=== PATIENT | female | born 1970 | race Caucasian/White ===

== ENCOUNTER 2017-09-24 11:00 | Inpatient (IN) | payer SELFPAY ==
[~2017-09-24] VITALS: Ht 165.1 cm; Wt 94.8 kg
[2017-09-24] MEDS ORDERED: MORPHINE SULFATE 4 MG/ML CPJ (NOT FOR IM USE) IV STA (11:15)
[2017-09-24] MEDS ORDERED: SODIUM CHLORIDE 0.9% 1,000 ML IV ONE (11:15)
[2017-09-24] MEDS ORDERED: ONDANSETRON HCL 4MG/2ML VIAL IV STA (11:15)
[2017-09-24] MEDS ORDERED: FAMOTIDINE 20MG/2ML VIAL IV STA (11:15)
[2017-09-24 11:56] LABS: HEMATOCRIT. 36.3 % (36.0-48.0); HEMOGLOBIN. 12.1 g/dL (12.0-16.0); MEAN CORPUSCULAR HEMOGLOBIN 29.1 pg (28.0-32.0); MEAN CORPUSCULAR VOLUME 87.4 fL (81.0-99.0); MEAN PLATELET VOLUME 8.6 fl (7.4-10.4); PLATELET 262 x1000/uL (130-400); RED BLOOD CELL COUNT 4.15 mill/uL (4.2-5.4); RED CELL DISTRIBUTION WIDTH 14.6 % (11.6-14.6)
[2017-09-24 12:03] LABS: PARTIAL THROMBOPLASTIN TIME 26.4 sec (23.4-31.0); PROTHROMBIN TIME 10.3 sec (9.4-11.6)
[2017-09-24 12:04] LABS: CHLORIDE 103 mEq/L (98-107)
[2017-09-24 12:22] LABS: PLATELET ESTIMATE NORMAL
[2017-09-24 12:32] LABS: HCG SCREEN NEGATIVE
[2017-09-24 14:12] LABS: CLARITY URINE CLEAR (CLEAR); COLOR URINE YELLOW (YELLOW); KETONES URINE 3+ (NEGATIVE); LEUKOCYTE ESTERASE URINE NEGATIVE (NEGATIVE); NITRITE URINE NEGATIVE (NEGATIVE); OCCULT BLOOD URINE 2+ (NEGATIVE); PH URINE 6.5 (4.5-8.0); PROTEIN URINE NEGATIVE (NEGATIVE); SPECIFIC GRAVITY URINE 1.023 (1.005-1.030)
[2017-09-24] MEDS ORDERED: METRONIDAZOLE 500 MG PREMIX 100 ML IV ONE (14:30)
[2017-09-24] MEDS ORDERED: LEVOFLOXACIN 500MG PREMIX 100 ML IV ONE (14:30)
[2017-09-24 14:52] LABS: *BARBITURATES SCREEN URINE NEGATIVE (NEGATIVE); *COCAINE SCREEN URINE NEGATIVE (NEGATIVE); CANNABINOID URINE SCREEN NEGATIVE (NEGATIVE); PHENCYCLIDINE URINE SCREEN NEGATIVE (NEGATIVE)
[2017-09-24 14:53] LABS: *BENZODIAZEPINES SCREEN URINE NEGATIVE (NEGATIVE); METHADONE URINE SCREEN NEGATIVE (NEGATIVE)
[2017-09-24 15:00] LABS: *AMPHETAMINES SCREEN URINE PRESUMTIVE POSITIVE (NEGATIVE); OPIATES URINE SCREEN PRESUMTIVE POSITIVE (NEGATIVE)
[2017-09-24] MEDS ORDERED: MORPHINE SULFATE 4 MG/ML CPJ (NOT FOR IM USE) IV ONE (15:00)
[2017-09-24] MEDS ORDERED: ONDANSETRON 4MG ODT PO ONE (15:00)
[2017-09-24 19:12] VITALS: BP 131/72
[2017-09-24 19:48] VITALS: BP 131/72
[2017-09-24 20:00] VITALS: BP 114/61
[2017-09-24] MEDS ORDERED: HYDR12.529 PO (20:23)
[2017-09-24] MEDS ORDERED: METF500T4 PO (20:23)
[2017-09-24] MEDS ORDERED: ACETAMINOPHEN 325MG TABLET PO PRN (20:30)
[2017-09-24] MEDS ORDERED: DOCUSATE SODIUM 100MG CAPSULE PO PRN (20:30)
[2017-09-24] MEDS ORDERED: DIPHENHYDRAMINE 50MG/ML VIAL IV PRN (20:30)
[2017-09-24] MEDS ORDERED: MAGNESIUM/ALUMINUM HYDROXIDE/SIMETHICONE 30ML UDC PO PRN (20:30)
[2017-09-24] MEDS ORDERED: CLONIDINE 0.1MG TABLET PO PRN (20:30)
[2017-09-24] MEDS ORDERED: NA PHOS,M-B/NA PHOS,DI-BA ENEMA 118ML PR PRN (20:30)
[2017-09-24] MEDS ORDERED: ONDANSETRON HCL 4MG/2ML VIAL IV PRN (20:30)
[2017-09-24] MEDS ORDERED: HYDROCODONE/ACETAMINOPHEN 10/325MG TABLET PO PRN (20:30)
[2017-09-24] MEDS ORDERED: GUAIFENESIN 200MG/10ML SUGAR FREE UDC PO PRN (20:30)
[2017-09-24] MEDS ORDERED: LORAZEPAM 0.5MG TABLET PO PRN (20:30)
[2017-09-24] MEDS ORDERED: IPRATROPIUM/ALBUTEROL 0.5-3(2.5)MG/3ML NEB INH PRN (20:30)
[2017-09-24 21:21] LABS: CHLORIDE 102 mEq/L (98-107)
[2017-09-24] MEDS: SODIUM CHLORIDE 0.45% 1,000 ML IV SCH (21:55)
[2017-09-24] MEDS: ENOXAPARIN 30MG/0.3ML SYR SUBCUT SCH (21:56)
[2017-09-24] MEDS ORDERED: DEXTROSE 50% WATER 50ML SYRINGE IV PRN (23:00)
[2017-09-25] VITALS: BP 136/62
[2017-09-25] MEDS: METRONIDAZOLE 500 MG PREMIX 100 ML IV SCH ×4 (02:33→19:05)
[2017-09-25 04:00] VITALS: BP 103/54
[2017-09-25] MEDS: MORPHINE SULFATE 4 MG/ML CPJ (NOT FOR IM USE) IV PRN ×3 (05:10→20:14)
[2017-09-25] MEDS: BLOOD SUGAR DIAGNOSTIC STRIP TEST SCH ×4 (06:54→21:28)
[2017-09-25 07:36] LABS: BASOPHILS % 0.2 % (0.0-2.0); EOSINOPHILS % 0.6 % (0.0-5.0); HEMATOCRIT. 32.4 % (36.0-48.0); HEMOGLOBIN. 10.9 g/dL (12.0-16.0); LYMPHOCYTES % 14.5 % (20.0-50.0); MEAN CORPUSCULAR HEMOGLOBIN 29.2 pg (28.0-32.0); MEAN CORPUSCULAR VOLUME 87.1 fL (81.0-99.0); MEAN PLATELET VOLUME 8.7 fl (7.4-10.4); MONOCYTES % 7.8 % (2.0-8.0); NEUTROPHILS % 76.9 % (40.0-76.0); PLATELET 260 x1000/uL (130-400); RED BLOOD CELL COUNT 3.72 mill/uL (4.2-5.4); RED CELL DISTRIBUTION WIDTH 14.5 % (11.6-14.6)
[2017-09-25 07:40] VITALS: BP 112/54
[2017-09-25] MEDS: INSULIN LISPRO 100 UNITS/ML SUBCUT SCH ×4 (07:50→21:32)
[2017-09-25 07:54] LABS: CHLORIDE 104 mEq/L (98-107)
[2017-09-25 08:27] LABS: HDL CHOLESTEROL 37 mg/dL (40-59); LDL CHOLESTEROL 61 mg/dL (5-100)
[2017-09-25] MEDS: METFORMIN HCL 500MG TABLET PO SCH ×2 (08:53→18:59)
[2017-09-25] MEDS: HYDROCHLOROTHIAZIDE 12.5MG CAPSULE PO SCH (08:59)
[2017-09-25] MEDS: ENOXAPARIN 30MG/0.3ML SYR SUBCUT SCH ×2 (09:00→21:26)
[2017-09-25] MEDS ORDERED: POTASSIUM CHLORIDE 20MEQ TABLET SR PO NR (11:25)
[2017-09-25 12:00] VITALS: BP 120/60
[2017-09-25 15:59] VITALS: BP 114/54
[2017-09-25] MEDS ORDERED: LEVOFLOXACIN 500MG PREMIX 100 ML IV SCH (18:00)
[2017-09-25] MEDS: SODIUM CHLORIDE 0.45% 1,000 ML IV SCH (21:22)
[2017-09-26 04:00] VITALS: BP 114/57
[2017-09-26] MEDS: SODIUM CHLORIDE 0.45% 1,000 ML IV SCH (04:19)
[2017-09-26] MEDS: MORPHINE SULFATE 4 MG/ML CPJ (NOT FOR IM USE) IV PRN (04:24)
[2017-09-26] MEDS: BLOOD SUGAR DIAGNOSTIC STRIP TEST SCH (06:21)
[2017-09-26] MEDS: INSULIN LISPRO 100 UNITS/ML SUBCUT SCH (07:50)
[2017-09-26 08:00] VITALS: BP 119/60
[2017-09-26] MEDS: ENOXAPARIN 30MG/0.3ML SYR SUBCUT SCH (08:03)
[2017-09-26] MEDS: HYDROCHLOROTHIAZIDE 12.5MG CAPSULE PO SCH (08:11)
[2017-09-26] MEDS: METFORMIN HCL 500MG TABLET PO SCH (08:11)
[2017-09-26 09:51] VITALS: BP 133/61
== END 2017-09-26 10:30 | disposition home or self-care (01) | DRG 532 ==
LOC: ER 11:20 → 6EST 14:44 → ENRESERV 14:48
PROVIDERS: ADMIT Internal Medicine; ATTEND Internal Medicine
DX: D25.9 Leiomyoma of uterus, unspecified (principal); R65.10 Systemic inflammatory response syndrome (SIRS) of non-infectious origin without acute organ dysfunction; I10 Essential (primary) hypertension; E86.0 Dehydration; E11.9 Type 2 diabetes mellitus without complications; F19.10 Other psychoactive substance abuse, uncomplicated; Z79.899 Other long term (current) drug therapy; Z79.84 Long term (current) use of oral hypoglycemic drugs; Z90.49 Acquired absence of other specified parts of digestive tract; Z88.0 Allergy status to penicillin
CPT/HCPCS: 36415; 71045; 74176; 76830; 76856; 80048; 80053; 80061; 80305; 81003; 82962; 83605; 83690; 84484; 84703; 85025; 85610; 85730; 87040; 87077; 93005; 93970; C1893; J1650; J1815; J1956; J2270; J2405; J3490; J7030; Q0162